=== PATIENT | male | born 1995 | race Hispanic/Latino ===

== ENCOUNTER 2023-08-27 10:11 | Emergency (ER) | payer OTHER ==
[~2023-08-27] VITALS: Ht 170.2 cm; Wt 158.8 kg
[2023-08-27] MEDS ORDERED: DIPH,PERTUSS(ACELL),TET VAC/PF 0.5 ML VIAL IM ONE (11:30)
[2023-08-27] MEDS ORDERED: CEPH500B PO (12:27)
[2023-08-27] MEDS ORDERED: LIDOCAINE HCL 1% 20 ML VIAL INJ SCH (12:30)
[2023-08-27 13:12] VITALS: BP 160/85; PULSE 69; RESP 18; O2SAT 99
== END 2023-08-27 13:00 | disposition home or self-care (01) ==
LOC: EDH 10:11
DX: S60.552A Superficial foreign body of left hand, initial encounter (principal); X58.XXXA Exposure to other specified factors, initial encounter; Y93.89 Activity, other specified; Y92.89 Other specified places as the place of occurrence of the external cause; Y99.8 Other external cause status; I10 Essential (primary) hypertension; J45.909 Unspecified asthma, uncomplicated; Z90.89 Acquired absence of other organs
CPT/HCPCS: 10120; 73120; 73130; 90471; 90715